=== PATIENT | female | born 1955 | race Caucasian/White ===

== ENCOUNTER → 2018-07-01 | Outpatient (REF) | payer BC ==
[~2018-07-01] MED LIST: FERR-1 PO; IBU800 PO; IBUP800T37 PO; LEV100 PO; LEVO100T95 PO; LEVO88TA45 PO; MET2 PO
[2018-07-01 09:34] LABS: PLATELET COUNT, AUTOMATED 394 K/uL (150-450)
== END ==
LOC: ZZSTITCHES 09:26
PROVIDERS: ATTEND Physician Assistant
DX: R42 Dizziness and giddiness (principal); N39.0 Urinary tract infection, site not specified; B96.89 Other specified bacterial agents as the cause of diseases classified elsewhere
CPT/HCPCS: 82040; 82247; 82310; 82374; 82435; 82565; 82947; 84075; 84132; 84155; 84295; 84450; 84460; 84484; 84520; 85025; 85379; 87088